=== PATIENT | female | born 1990 | race African-American/Black ===

== ENCOUNTER 2023-11-06 11:00 | Emergency (ER) | payer OTHER ==
[~2023-11-06] VITALS: Ht 154.9 cm; Wt 63.5 kg
[2023-11-06 14:17] VITALS: BP 120/64; O2SAT 98
== END 2023-11-06 13:25 | disposition home or self-care (01) ==
LOC: ER 11:00
DX: O20.0 Threatened abortion (principal); Z98.890 Other specified postprocedural states; Z3A.01 Less than 8 weeks gestation of pregnancy
CPT/HCPCS: A4606; A4663